=== PATIENT | male | born 2000 | race Caucasian/White ===

== ENCOUNTER 2019-07-17 08:53 | Emergency (ER) | payer OTHER ==
[2019-07-17] MEDS ORDERED: KETOROLAC 60 MG/2 ML VIAL IM STA (09:11)
--- NOTE | 2019-07-17 09:11 | ED Physician Documentation ---
PD HPI BACK PAIN - Stated complaint Stated Complaint: LOWER BACK PX - History obtained from History obtained from: Patient - History of Present Illness Timing - onset: How many days ago (3) Timing - duration: Days (3) Timing - details: Gradual onset Pain level now: 8 Location: Lower Quality: Pain Associated symptoms: No: Fever, Weakness, Numbness, Incontinent of urine, Unable to urinate Improves with: Nothing Worsened by: Movement Similar symptoms before: Has not had sx before Recently seen: Not recently seen - Additional information Additional information: This is a 18-year-old man who is in the [employer], flies on aircraft sitting a lot, started to develop back pain in his lower back 3 days prior to presentation. He said initially it was kind of him more on the right side but now it has moved bilateral and he can feel it radiating down into the front of his thighs bilaterally to about mid thigh when he standing and to his knees when he is s itting. He cannot describe it other than to say that it feels like it is "blocking for movement". Is an 8 out of 10 currently. He has not taken any medications for it. He is been very fatigued but he cannot sleep because of the pain. He denies any nausea or vomiting. No dysuria, hematuria or history of kidney stones. He has not had any upper respiratory symptoms and denies any rash. There was no known injury. Review of Systems Constitutional: reports: Fatigue. denies: Fever Ears: denies: Ear pain Nose: denies: Congestion Throat: denies: Sore throat GI: denies: Nausea, Vomiting : denies: Dysuria, Frequency, Hematuria Skin: denies: Rash Musculoskeletal: reports: Back pain, Extremity pain Neurologic: denies: Generalized weakness, Focal weakness PD PAST MEDICAL HISTORY - Present Medications Home Medications: Ambulatory Orders Medication Instructions Recorded Confirmed Piroxicam [Feldene] 20 mg PO DAILY #30 capsule 07/17/19 - Allergies Allergies/Adverse Reactions: Allergies Allergy/AdvReac Type Severity Reaction Status Date / Time No Known Drug Allergies Allergy Verified 07/17/19 09:05 PD ED PE NORMAL - Vitals Vital signs reviewed: Yes - General General: Alert and oriented X 3, No acute distress, Well developed/nourished - HEENT HEENT: Atraumatic - Respiratory Respiratory: No respiratory distress - Derm Derm: Normal color, Warm and dry, No rash - Extremities Extremities: No deformity, No edema - Neuro Neuro: Alert and oriented X 3, support services tech 2-12 intact, No motor deficit, No sensory deficit, Normal speech, Other (Reflexes symmetrical at the quadriceps bilaterally Negative seated straight leg raise) - Psych Psych: Normal mood, Normal affect Results - Vitals Vitals: Vital Signs - 24 hr 07/17/19 09:01 Temperature 36.8 C Heart Rate 90 Respiratory 16 Rate Blood Pressure 148/125 H O2 Saturation 100 Oxygen O2 Source Room air - Labs Labs: Laboratory Tests 07/17/19 09:20 Urine Color YELLOW Urine Clarity CLEAR Urine pH 5.5 Ur Specific [place] 1.025 Urine Protein NEGATIVE Urine Glucose (UA) NEGATIVE Urine Ketones NEGATIVE Urine Occult Blood NEGATIVE Urine Nitrite NEGATIVE Urine Bilirubin NEGATIVE Urine Urobilinogen 0.2 (NORMAL) Ur Leukocyte Esterase NEGATIVE Ur Microscopic Review NOT INDICATED Urine Culture Comments NOT INDICATED PD MEDICAL DECISION MAKING - ED course Complexity details: reviewed results, re-evaluated patient ED course: Patient received Toradol 60 mg IM injection. On reevaluation he said he was feeling much better with very minimal pain left. At this point I do not see an indication for emergent imaging. He does have a little radicular pain into the upper thighs that could just be muscular tightness. We discussed stretching exercises and using anti-inflammatory. He has not had good luck with ibuprofen in the past so I did give him prescription for Feldene[place] or not improving. Departure - Departure Disposition: 01 Home, Self Care Clinical Impression: Back pain Qualifiers: Back pain location: low back pain Chronicity: acute Back pain laterality: bilateral Sciatica presence: with sciatica Sciatica laterality: bilateral sciatica Qualified Code(s): M54.42 - Lumbago with sciatica, left side; M54.41 - Lumbago with sciatica, right side Condition: Good Instructions: ED Exercises Lumbar Muscles, ED Back Care Tips, ED Sprain Strain Lumbar Follow-Up: [facility] [Provider Group] Prescriptions: Piroxicam [Feldene] 20 mg PO DAILY #30 capsule Comments: Try to avoid sitting for prolonged periods of time. Get up and move around and do some lower back stretching exercises. You should do these exercises at least daily. Take the Feldene daily as prescribed with food. [place] you have persistent pain.
[2019-07-17 09:38] LABS: BILIRUBIN,URINE NEGATIVE (NEGATIVE); GLUCOSE, URINE (UA) NEGATIVE (NEGATIVE); KETONES,URINE (UA) NEGATIVE (NEGATIVE); LEUKOCYTE ESTERASE, URINE NEGATIVE (NEGATIVE); NITRITE,URINE NEGATIVE (NEGATIVE); OCCULT BLOOD,URINE NEGATIVE (NEGATIVE); PH,URINE 5.5 PH (5.0-7.5); PROTEIN,URINE NEGATIVE (NEGATIVE); UROBILINOGEN,URINE 0.2 (NORMAL) E.U./dL (NORMAL)
[2019-07-17 09:42] LABS: CLARITY,URINE CLEAR (CLEAR)
[2019-07-17 10:40] VITALS: BP 138/84
== END 2019-07-17 10:40 | disposition home or self-care (01) ==
LOC: ED 08:53
DX: M54.42 Lumbago with sciatica, left side (principal); M54.41 Lumbago with sciatica, right side
CPT/HCPCS: 81001; 81003; 87086; 96372; 99283; 99284